=== PATIENT | male | born 1940 | race Caucasian/White ===

== ENCOUNTER 2023-04-13 05:20 | Inpatient (IN) | payer BC ==
[~2023-04-13] VITALS: Ht 175.3 cm; Wt 94.3 kg
[~2023-04-13 05:20] MED LIST: HYDR12.55 PO; LISI10TA29 PO; MELO15TA13 PO; OMEP20CA15 PO; SIMV-341 PO
[2023-04-13] MEDS: CELECOXIB 100 MG CAPSULE ONE ×2 (05:38→05:53)
[2023-04-13] MEDS: ACETAMINOPHEN 500 MG TABLET ONE ×2 (05:38→05:53)
[2023-04-13] MEDS: SCOPOLAMINE HYDROBROMIDE 1 MG PATCH .72 H (TRANSDERM-SCOP) TD ONE ×2 (05:38→05:53)
[2023-04-13] MEDS: GABAPENTIN 300 MG CAPSULE ONE ×2 (05:39→05:53)
[2023-04-13] MEDS ORDERED: oxyCODONE HCL 10 MG TAB.ER.12H PO ONE ×2 (05:39→06:00)
[2023-04-13] MEDS ORDERED: CELECOXIB 100 MG CAPSULE PO ONE (06:00)
[2023-04-13] MEDS ORDERED: SCOPOLAMINE HYDROBROMIDE 1 MG PATCH .72 H (TRANSDERM-SCOP) TD ONE (06:00)
[2023-04-13] MEDS ORDERED: GABAPENTIN 300 MG CAPSULE PO ONE (06:00)
[2023-04-13] MEDS ORDERED: ACETAMINOPHEN 500 MG TABLET PO ONE (06:00)
[2023-04-13] MEDS ORDERED: ceFAZolin SODIUM 2 GM in D5W 100 ML IV ONE (06:30)
[2023-04-13] MEDS ORDERED: AMIO200T68 PO (07:23)
[2023-04-13] MEDS ORDERED: POTA-197 PO (07:23)
[2023-04-13] MEDS ORDERED: CARV6.2554 PO (07:23)
[2023-04-13] MEDS ORDERED: FURO40TA5 PO (07:23)
[2023-04-13] MEDS ORDERED: MELO-89 PO (07:23)
[2023-04-13] MEDS ORDERED: SACU1TAB PO (07:23)
[2023-04-13] MEDS ORDERED: APIX5TAB4 PO (07:23)
[2023-04-13] MEDS ORDERED: OMEP20CA15 PO (07:23)
[2023-04-13] MEDS ORDERED: TRANEXAMIC ACID 1,000 MG/10 ML VIAL ONE (07:25)
[2023-04-13] MEDS ORDERED: DEXAMETHASONE SOD PHOSPHATE 4 MG/ML VIAL ONE (07:25)
[2023-04-13] MEDS ORDERED: NS IRRIG SOLN 1000 ML IR ONE (07:25)
[2023-04-13] MEDS ORDERED: SEVOFLURANE 15 MIN GAS INH ONE (07:25)
[2023-04-13] MEDS ORDERED: ONDANSETRON HCL 4 MG/2 ML VIAL ONE (07:25)
[2023-04-13] MEDS ORDERED: METOCLOPRAMIDE HCL 10 MG/2 ML VIAL ONE (07:25)
[2023-04-13] MEDS ORDERED: fentaNYL CITRATE/PF 100 MCG/2 ML AMP ONE (07:25)
[2023-04-13] MEDS ORDERED: BUPIVACAINE /PF 0.25% 30 ML VIAL INJ ONE (07:25)
[2023-04-13] MEDS ORDERED: NS 1000 ML IV.SOLN IV ONE (07:25)
[2023-04-13] MEDS ORDERED: MEPERIDINE 100 MG INJ. 100 MG/ML VIAL ONE (07:25)
[2023-04-13] MEDS ORDERED: VANCOMYCIN HCL 1000 MG/VIAL IV ONE (07:25)
[2023-04-13] MEDS ORDERED: PROPOFOL 200MG/ 20ML VIAL (DIPRIVAN) IV ONE (07:25)
[2023-04-13] MEDS ORDERED: NALOXONE HCL 0.4 MG/ML AMP (NARCAN) IVP PRN ×3 (09:45)
[2023-04-13] MEDS ORDERED: LACTULOSE 20 GM/30 ML UDC PO PRN (09:45)
[2023-04-13] MEDS ORDERED: BISACODYL 10 MG/SUPPOSITORY RC PRN (09:45)
[2023-04-13] MEDS ORDERED: DIPHENHYDRAMINE HCL 25 MG CAPSULE PO PRN (09:45)
[2023-04-13] MEDS ORDERED: METOCLOPRAMIDE HCL 10 MG/2 ML VIAL IVP PRN ×2 (09:45→10:15)
[2023-04-13] MEDS ORDERED: KETOROLAC TROMETHAMINE 30 MG VIAL IVP PRN (10:15)
[2023-04-13] MEDS ORDERED: ONDANSETRON HCL 4 MG/2 ML VIAL IVP PRN ×2 (10:15→11:45)
[2023-04-13] MEDS ORDERED: LR 1,000 ML IV SCH (10:15)
[2023-04-13] MEDS ORDERED: MEPERIDINE HCL/PF 25 MG/ML DISP.SYRIN IVP PRN (10:15)
[2023-04-13] MEDS ORDERED: HYDROmorphone 1 MG/ML INJ. CARTRIDGE ONE (10:25)
[2023-04-13] MEDS: HYDROmorphone 1 MG/ML INJ. CARTRIDGE IVP PRN ×2 (10:25→10:35)
[2023-04-13] MEDS ORDERED: traMADol HCL HCL 50 MG TABLET (ULTRAM) PO PRN (11:00)
[2023-04-13] MEDS ORDERED: HYDROmorphone 1 MG/ML INJ. CARTRIDGE IVP PRN ×2 (11:00)
[2023-04-13] MEDS ORDERED: LORATADINE 10 MG TABLET PO PRN (11:00)
[2023-04-13 11:15] VITALS: O2SAT 95
[2023-04-13] MEDS ORDERED: TAMSULOSIN HCL 0.4 MG CAP PO ONE (14:00)
[2023-04-13] MEDS: oxyCODONE HCL 5 MG TABLET PO PRN (14:33)
[2023-04-13] MEDS: KETOROLAC TROMETHAMINE 10 MG TABLET (TORADOL) PO SCH ×2 (15:14→21:58)
[2023-04-13] MEDS: ACETAMINOPHEN 500 MG TABLET PO SCH ×2 (15:15→21:59)
[2023-04-13] MEDS: ceFAZolin SODIUM 2 GM in D5W 50 ML IV SCH ×2 (15:16→21:46)
[2023-04-13 17:30] VITALS: BP_SYST 142; PULSE 71; RESP 17; TEMP 98; O2SAT 96
[2023-04-13 19:00] VITALS: BP_SYST 122; PULSE 70; RESP 12; RESP 14; TEMP 98.8; O2SAT 93; O2SAT 98
[2023-04-13 20:00] VITALS: BP_SYST 122; PULSE 70; RESP 14; TEMP 98.4; O2SAT 98
[2023-04-13] MEDS: SENNOSIDES/DOCUSATE SODIUM 1 TAB TABLET(SENOKOT-S) PO SCH (20:51)
[2023-04-13] MEDS: AMIODARONE HCL 200 MG TABLET PO SCH (20:52)
[2023-04-13] MEDS: CARVEDILOL 6.25 MG TABLET (COREG) PO SCH (20:52)
[2023-04-14 00:13] VITALS: BP_SYST 121; PULSE 73; RESP 19; TEMP 98.2; O2SAT 94
[2023-04-14] MEDS: ceFAZolin SODIUM 2 GM in D5W 50 ML IV SCH (05:20)
[2023-04-14] MEDS: KETOROLAC TROMETHAMINE 10 MG TABLET (TORADOL) PO SCH (05:21)
[2023-04-14] MEDS: ACETAMINOPHEN 500 MG TABLET PO SCH ×3 (05:21→21:43)
[2023-04-14 08:01] LABS: BASOPHILS % (AUTO) 0.2 % (0.0-2.0); HEMATOCRIT 41.3 % (36-54); HEMOGLOBIN 13.9 g/dL (14.0-18.0); LYMPHOCYTES # (AUTO) 1.9 K/uL (1.0-5.5); MEAN CORPUSCULAR HEMOGLOBIN 31 pg (27-31); MEAN CORPUSCULAR HGB CONC 34 % (32-36); MEAN CORPUSCULAR VOLUME 93 fL (79.0-98.0); MONOCYTES # (AUTO) 1.6 K/uL (0.0-1.0); MONOCYTES % (AUTO) 11.7 % (1.7-9.3); NEUTROPHILS # (AUTO) 10.3 K/uL (1.8-7.7); PLATELET COUNT (AUTO) 143 K/uL (130-430); RED BLOOD CELL COUNT(AUTO) 4.43 MIL/uL (4.2-6.2); WHITE BLOOD COUNT (AUTO) 13.9 K/uL (4.8-10.8)
[2023-04-14 08:09] LABS: ANION GAP 4 (5-15); CARBON DIOXIDE 30 mmol/L (23-29); CHLORIDE 108 mmol/L (98-107); GLUCOSE 123 mg/dL (74-106); POTASSIUM 3.4 mmol/L (3.5-5.1); SODIUM SERUM 142 mmol/L (136-145); UREA NITROGEN, BLOOD 17 mg/dL (8-21)
[2023-04-14 08:23] LABS: CREATININE 1.25 mg/dL (0.55-1.30)
[2023-04-14] MEDS ORDERED: TAMSULOSIN HCL 0.4 MG CAP PO SCH (09:00)
[2023-04-14] MEDS: SENNOSIDES/DOCUSATE SODIUM 1 TAB TABLET(SENOKOT-S) PO SCH ×2 (09:25→20:34)
[2023-04-14] MEDS: oxyCODONE HCL 5 MG TABLET PO PRN ×3 (09:25→20:35)
[2023-04-14] MEDS: CARVEDILOL 6.25 MG TABLET (COREG) PO SCH ×2 (09:25→20:34)
[2023-04-14] MEDS: FUROSEMIDE 40 MG TABLET PO SCH (09:25)
[2023-04-14] MEDS: AMIODARONE HCL 200 MG TABLET PO SCH ×2 (09:26→20:34)
[2023-04-14] MEDS: LISINOPRIL 10 MG TABLET (PRINIVIL) PO SCH (09:26)
[2023-04-14] MEDS: SIMVASTATIN 10 MG TABLET PO SCH (09:27)
[2023-04-14] MEDS: APIXABAN 2.5 MG TABLET PO SCH ×2 (09:31→20:36)
[2023-04-14 10:49] VITALS: O2SAT 94
[2023-04-14 11:11] LABS: NEUTROPHILS % (AUTO) 74.1 % (40.0-70.0)
[2023-04-14 11:30] VITALS: BP_SYST 116; PULSE 67; RESP 17; TEMP 98.8; O2SAT 91
[2023-04-14 17:30] VITALS: BP_SYST 137; PULSE 72; RESP 18; TEMP 98.4; O2SAT 90
[2023-04-14 19:30] VITALS: O2SAT 93
[2023-04-14 20:00] VITALS: BP_SYST 108; PULSE 86; RESP 18; TEMP 97.5; O2SAT 93
[2023-04-14] MEDS ORDERED: POTASSIUM CHLORIDE 20 MEQ TAB.PRT.SR PO ONE (22:45)
[2023-04-15] VITALS (19 sets, daily range): BP systolic 63–127; PULSE 81–89; RESP 17–18; TEMP 96.5–98; O2SAT 87–98
[2023-04-15] MEDS: ACETAMINOPHEN 500 MG TABLET PO SCH ×2 (05:48→21:14)
[2023-04-15 06:57] LABS: ANION GAP 8 (5-15); CALCIUM 9.7 mg/dL (8.4-11.0); CARBON DIOXIDE 29 mmol/L (23-29); CHLORIDE 103 mmol/L (98-107); CREATININE 1.09 mg/dL (0.55-1.30); GLUCOSE 133 mg/dL (74-106); POTASSIUM 3.3 mmol/L (3.5-5.1); SODIUM SERUM 140 mmol/L (136-145); UREA NITROGEN, BLOOD 22 mg/dL (8-21)
[2023-04-15] MEDS: CARVEDILOL 6.25 MG TABLET (COREG) PO SCH ×2 (09:00→21:00)
[2023-04-15] MEDS: AMIODARONE HCL 200 MG TABLET PO SCH ×2 (09:00→21:00)
[2023-04-15] MEDS ORDERED: CEPHALEXIN 250 MG/5 ML, 100 ML BTL PO SCH (09:00)
[2023-04-15] MEDS: LISINOPRIL 10 MG TABLET (PRINIVIL) PO SCH (09:00)
[2023-04-15] MEDS: FUROSEMIDE 40 MG TABLET PO SCH (09:00)
[2023-04-15] MEDS ORDERED: NS 500 ML IV ONE (09:45)
[2023-04-15] MEDS: SIMVASTATIN 10 MG TABLET PO SCH (10:32)
[2023-04-15] MEDS: SENNOSIDES/DOCUSATE SODIUM 1 TAB TABLET(SENOKOT-S) PO SCH ×2 (10:32→21:11)
[2023-04-15] MEDS: cephALEXin 500 MG CAPSULE PO SCH ×3 (10:32→21:11)
[2023-04-15] MEDS: APIXABAN 2.5 MG TABLET PO SCH ×2 (10:38→21:16)
[2023-04-15] MEDS: LR 1,000 ML IV SCH ×2 (10:39→18:37)
[2023-04-15] MEDS ORDERED: MIDODRINE HCL 5 MG TABLET (PROAMATINE) PO ONE (14:30)
[2023-04-15] MEDS ORDERED: ALBUMIN HUMAN 25% 100 ML IV ONE (18:45)
[2023-04-15] MEDS ORDERED: POTASSIUM CHLORIDE 20 MEQ TAB.PRT.SR PO ONE (20:00)
[2023-04-15] MEDS: MIDODRINE HCL 5 MG TABLET (PROAMATINE) PO SCH (21:13)
[2023-04-16] VITALS (11 sets, daily range): BP systolic 113–140; PULSE 66–87; RESP 16–20; TEMP 97.1–98.2; O2SAT 9–97
[2023-04-16] MEDS: LR 1,000 ML IV SCH (01:53)
[2023-04-16 05:32] LABS: BASOPHILS % (AUTO) 0.3 % (0.0-2.0); EOSINOPHILS # (AUTO) 0.1 K/uL (0.0-0.4); EOSINOPHILS % (AUTO) 0.8 % (0.0-4.0); HEMATOCRIT 34.6 % (36-54); HEMOGLOBIN 11.8 g/dL (14.0-18.0); LYMPHOCYTES # (AUTO) 2.3 K/uL (1.0-5.5); LYMPHOCYTES % (AUTO) 17.1 % (20.5-51.5); MEAN CORPUSCULAR HEMOGLOBIN 32 pg (27-31); MEAN CORPUSCULAR HGB CONC 34 % (32-36); MEAN CORPUSCULAR VOLUME 93 fL (79.0-98.0); MONOCYTES # (AUTO) 1.8 K/uL (0.0-1.0); MONOCYTES % (AUTO) 13.3 % (1.7-9.3); NEUTROPHILS # (AUTO) 9.1 K/uL (1.8-7.7); NEUTROPHILS % (AUTO) 68.5 % (40.0-70.0); PLATELET COUNT (AUTO) 107 K/uL (130-430); RED BLOOD CELL COUNT(AUTO) 3.73 MIL/uL (4.2-6.2); RED CELL DISTRIBUTION WIDTH 13.9 % (9.0-15.0); WHITE BLOOD COUNT (AUTO) 13.2 K/uL (4.8-10.8)
[2023-04-16 06:10] LABS: ALANINE AMINOTRANSFERASE 32 U/L (12-78); ALBUMIN 2.8 g/dL (3.4-4.8); ANION GAP 7 (5-15); ASPARTATE AMINOTRANSFERASE 67 U/L (10-37); CARBON DIOXIDE 29 mmol/L (23-29); CHLORIDE 106 mmol/L (98-107); CHOLESTEROL 97 mg/dL (<200); CREATININE 1.09 mg/dL (0.55-1.30); GLUCOSE 94 mg/dL (74-106); HDL CHOLESTEROL 59 mg/dL (>45); POTASSIUM 4.3 mmol/L (3.5-5.1); SODIUM SERUM 142 mmol/L (136-145); TOTAL PROTEIN, SERUM 4.8 g/dL (6.4-8.3); TRIGLYCERIDES 34 mg/dL (30-150); UREA NITROGEN, BLOOD 22 mg/dL (8-21)
[2023-04-16] MEDS: ACETAMINOPHEN 500 MG TABLET PO SCH ×3 (06:18→21:47)
[2023-04-16] MEDS: HYDROmorphone 1 MG/ML INJ. CARTRIDGE IVP PRN ×2 (09:30→13:32)
[2023-04-16] MEDS: MIDODRINE HCL 5 MG TABLET (PROAMATINE) PO SCH ×2 (10:14→21:49)
[2023-04-16] MEDS: cephALEXin 500 MG CAPSULE PO SCH ×3 (10:14→21:48)
[2023-04-16] MEDS: SENNOSIDES/DOCUSATE SODIUM 1 TAB TABLET(SENOKOT-S) PO SCH ×2 (10:14→21:53)
[2023-04-16] MEDS: CARVEDILOL 6.25 MG TABLET (COREG) PO SCH ×2 (10:15→21:49)
[2023-04-16] MEDS: AMIODARONE HCL 200 MG TABLET PO SCH ×2 (10:15→21:48)
[2023-04-16] MEDS: LISINOPRIL 10 MG TABLET (PRINIVIL) PO SCH (10:16)
[2023-04-16] MEDS: SIMVASTATIN 10 MG TABLET PO SCH (10:16)
[2023-04-16] MEDS: FUROSEMIDE 40 MG TABLET PO SCH (10:16)
[2023-04-16] MEDS: APIXABAN 2.5 MG TABLET PO SCH ×2 (10:38→21:52)
[2023-04-17] VITALS (7 sets, daily range): BP systolic 127–146; PULSE 64–82; RESP 18–19; TEMP 97–97.9; O2SAT 90–97
[2023-04-17] MEDS: ACETAMINOPHEN 500 MG TABLET PO SCH ×3 (06:53→21:13)
[2023-04-17 07:57] LABS: BLOOD GAS PCO2 32.9 mmHg (32.0-45.0); BLOOD GAS PH 7.452 (7.350-7.450)
[2023-04-17 07:58] LABS: ABG O2 SAT% ESTIMATE 90.5 % (94.0-100.0); ALLEN'S TEST POSITIVE (P); BLOOD GAS BASE EXCESS -0.7 mmol/L (-3.0-3.0); BLOOD GAS HCO3 22.5 mmol/L (21.0-27.0); BLOOD GAS PO2 55.3 mmHg (75.0-100.0)
[2023-04-17] MEDS: MIDODRINE HCL 5 MG TABLET (PROAMATINE) PO SCH ×2 (09:09→21:17)
[2023-04-17] MEDS: LISINOPRIL 10 MG TABLET (PRINIVIL) PO SCH (09:10)
[2023-04-17] MEDS: CARVEDILOL 6.25 MG TABLET (COREG) PO SCH ×2 (09:10→21:16)
[2023-04-17] MEDS: SENNOSIDES/DOCUSATE SODIUM 1 TAB TABLET(SENOKOT-S) PO SCH ×2 (09:10→21:00)
[2023-04-17] MEDS: cephALEXin 500 MG CAPSULE PO SCH ×3 (09:10→21:12)
[2023-04-17] MEDS: AMIODARONE HCL 200 MG TABLET PO SCH ×2 (09:11→21:12)
[2023-04-17] MEDS: SIMVASTATIN 10 MG TABLET PO SCH (09:11)
[2023-04-17] MEDS ORDERED: FUROSEMIDE 20 MG TABLET PO ONE (09:15)
[2023-04-17] MEDS: APIXABAN 2.5 MG TABLET PO SCH ×2 (09:15→21:15)
[2023-04-17 10:06] LABS: BASOPHILS % (AUTO) 0.4 % (0.0-2.0); EOSINOPHILS # (AUTO) 0.1 K/uL (0.0-0.4); EOSINOPHILS % (AUTO) 1.2 % (0.0-4.0); HEMATOCRIT 37.1 % (36-54); HEMOGLOBIN 12.2 g/dL (14.0-18.0); LYMPHOCYTES # (AUTO) 1.3 K/uL (1.0-5.5); LYMPHOCYTES % (AUTO) 13.5 % (20.5-51.5); MEAN CORPUSCULAR HEMOGLOBIN 31 pg (27-31); MEAN CORPUSCULAR HGB CONC 33 % (32-36); MEAN CORPUSCULAR VOLUME 93 fL (79.0-98.0); MONOCYTES % (AUTO) 10.3 % (1.7-9.3); NEUTROPHILS # (AUTO) 7.4 K/uL (1.8-7.7); NEUTROPHILS % (AUTO) 74.6 % (40.0-70.0); PLATELET COUNT (AUTO) 137 K/uL (130-430); RED CELL DISTRIBUTION WIDTH 13.6 % (9.0-15.0); WHITE BLOOD COUNT (AUTO) 9.9 K/uL (4.8-10.8)
[2023-04-17 10:19] LABS: ALANINE AMINOTRANSFERASE 55 U/L (12-78); ALBUMIN 2.5 g/dL (3.4-4.8); ANION GAP 7 (5-15); ASPARTATE AMINOTRANSFERASE 103 U/L (10-37); CALCIUM 8.9 mg/dL (8.4-11.0); CARBON DIOXIDE 29 mmol/L (23-29); CHLORIDE 105 mmol/L (98-107); CREATININE 0.96 mg/dL (0.55-1.30); GLUCOSE 95 mg/dL (74-106); SODIUM SERUM 141 mmol/L (136-145); TOTAL BILIRUBIN 1.1 mg/dL (0.0-1.0); TOTAL PROTEIN, SERUM 5.4 g/dL (6.4-8.3); UREA NITROGEN, BLOOD 21 mg/dL (8-21)
[2023-04-17] MEDS: oxyCODONE HCL 5 MG TABLET PO PRN (20:49)
[2023-04-18] MEDS ORDERED: FUROSEMIDE 20 MG TABLET PO SCH (09:00)
== END 2023-04-17 21:45 | disposition home health service (06) | DRG 469 ==
LOC: SMU 05:20 → STU 04-15 11:26
PROVIDERS: ADMIT Student in an Organized Health Care Education/Training Program; ATTEND Student in an Organized Health Care Education/Training Program
PROC: 0SRD0J9 Replacement of Left Knee Joint with Synthetic Substitute, Cemented, Open Approach (ICD-10-PCS; principal; 2023-04-13 07:30)
DX: M17.12 Unilateral primary osteoarthritis, left knee (principal); J96.00 Acute respiratory failure, unspecified whether with hypoxia or hypercapnia; I42.9 Cardiomyopathy, unspecified; E44.0 Moderate protein-calorie malnutrition; D64.9 Anemia, unspecified; D72.829 Elevated white blood cell count, unspecified; Z96.652 Presence of left artificial knee joint; I10 Essential (primary) hypertension; E78.5 Hyperlipidemia, unspecified; E66.9 Obesity, unspecified; I48.91 Unspecified atrial fibrillation; Z87.891 Personal history of nicotine dependence; Z68.30 Body mass index [BMI] 30.0-30.9, adult; Z79.84 Long term (current) use of oral hypoglycemic drugs; Z79.899 Other long term (current) drug therapy; I95.89 Other hypotension; E86.1 Hypovolemia
CPT/HCPCS: 36415; 36600; 71045; 73560-TC; 80048; 80053; 80061; 82800-TC; 82803; 82962; 83880; 84443; 85025; 87040; 87081; 88305; 88311; 93005; 93306; 96379; 97116-GP; 97163-GP; 97530-GP; C1776; G0378; J0690; J1100; J1170; J1885; J2175; J2405; J2704; J2765; J3010; J3370; J3490; J7030; J7060; J7120